=== PATIENT | male | born 1980 | race Hispanic/Latino ===

== ENCOUNTER 2023-02-26 13:40 | Observation (INO) | payer SELFPAY ==
[2023-02-26] VITALS (22 sets, daily range): BP systolic 118–154; BP diastolic 74–100
[~2023-02-26] VITALS: Ht 167.6 cm; Wt 77.1 kg
[~2023-02-26 13:40] MED LIST: ACYCLOVIR400 MG PO; LEVAQUIN750 MG PO; LIBRIUM25 M1 PO; THIAMINE HCL100 M1 PO
[2023-02-26 14:29] LABS: URINE BILIRUBIN - DIPSTICK Negative (NEGATIVE); URINE BLOOD DIPSTICK Trace-intact (NEGATIVE); URINE GLUCOSE - DIPSTICK Negative (NEGATIVE); URINE KETONE Negative (NEGATIVE); URINE LEUK ESTERASE Negative (NEGATIVE); URINE NITRITE - DIPSTICK Negative (Negative); URINE PH 5.5 (4.5-8.0); URINE PROTEIN - DIPSTICK Negative (NEG-TRACE); URINE UROBILINOGEN - DIPSTICK 0.2 E.U./dL (0.2)
[2023-02-26 14:31] LABS: BASO% 0.2 % (0-3); EOS% 0.1 % (0-8); IMMATURE GRANULOCYTES 0.6 % (0.0-5.0); LYMPH% 22.7 % (15-41); MEAN CELL VOLUME 81.9 fL CALC (80.0-100.0); MEAN CORPUSCULAR HGB 28.4 pG CALC (26.0-32.0); MEAN CORPUSCULAR HGB CONC 34.7 g/dL CAL (32.0-36.0); MONO% 5.3 % (2-13); NEUT# 5.89 thou/uL (1.82-7.42); NEUT% 71.1 % (42-76); RED BLOOD COUNT 5.46 mill/uL (4.70-6.10); RED CELL DISTRI WIDTH 12.3 % (11.5-15.5)
[2023-02-26 14:31] LABS: URINE COLOR Yellow
[2023-02-26 14:35] LABS: HEMATOCRIT 44.7 % (39.0-50.0); HEMOGLOBIN 15.5 g/dl (14.0-18.0)
[2023-02-26 15:21] LABS: ALBUMIN 4.5 g/dL (3.2-5.0); ALKALINE PHOSPHATASE 86 u/l (38-126); ANION GAP 16 (6-22 (CALC)); BUN 15 mg/dL (9-20); BUN/CREATININE RATIO 21 (12-20 (CALC)); CARBON DIOXIDE 29 mmol/l (22-30); CHLORIDE 100 mmol/l (95-108); CREATININE 0.7 mg/dL (0.7-1.3); GFR FOR AFR.AMER. > 60 ML/MIN (>=60 (CALC)); GFR OTHER RACES > 60 ML/MIN (>=60 (CALC)); LIPASE 377 u/l (23-300); POTASSIUM 3.5 mmol/l (3.5-5.1); SGOT/AST 287 u/l (17-59); SODIUM 141 mmol/l (137-146)
[2023-02-26 15:29] LABS: INTERNATIONAL NORMALIZED RATIO 1.3 RATIO (0.7-1.3)
[2023-02-26 15:33] LABS: BILIRUBIN, TOTAL 0.8 mg/dL (0.2-1.3); MAGNESIUM 2.3 mg/dL (1.6-2.3)
[2023-02-26 15:35] LABS: ETHYL ALCOHOL 456 mg/dl (0-30)
[2023-02-27] VITALS (17 sets, daily range): BP systolic 113–160; BP diastolic 71–104
[2023-02-27 07:21] LABS: BASO% 0.4 % (0-3); EOS% 0.5 % (0-8); IMMATURE GRANULOCYTES 0.4 % (0.0-5.0); LYMPH% 15.3 % (15-41); MEAN CELL VOLUME 82.2 fL CALC (80.0-100.0); MEAN CORPUSCULAR HGB 28.6 pG CALC (26.0-32.0); MEAN CORPUSCULAR HGB CONC 34.8 g/dL CAL (32.0-36.0); MONO% 8.7 % (2-13); NEUT# 5.57 thou/uL (1.82-7.42); NEUT% 74.7 % (42-76); RED BLOOD COUNT 4.61 mill/uL (4.70-6.10); RED CELL DISTRI WIDTH 12.3 % (11.5-15.5)
[2023-02-27 07:46] LABS: HEMATOCRIT 37.9 % (39.0-50.0); HEMOGLOBIN 13.2 g/dl (14.0-18.0)
[2023-02-27 07:54] LABS: ANION GAP 13 (6-22 (CALC)); BUN 11 mg/dL (9-20); BUN/CREATININE RATIO 17 (12-20 (CALC)); CARBON DIOXIDE 30 mmol/l (22-30); CHLORIDE 97 mmol/l (95-108); CREATININE 0.6 mg/dL (0.7-1.3); GFR FOR AFR.AMER. > 60 ML/MIN (>=60 (CALC)); GFR OTHER RACES > 60 ML/MIN (>=60 (CALC)); MAGNESIUM 1.8 mg/dL (1.6-2.3); POTASSIUM 3.5 mmol/l (3.5-5.1); SODIUM 136 mmol/l (137-146)
[2023-02-28] VITALS (19 sets, daily range): BP systolic 122–187; BP diastolic 69–120
[2023-02-28 09:19] LABS: BASO% 0.1 % (0-3); HEMATOCRIT 36.3 % (39.0-50.0); HEMOGLOBIN 12.7 g/dl (14.0-18.0); IMMATURE GRANULOCYTES 0.3 % (0.0-5.0); LYMPH% 13.2 % (15-41); MEAN CELL VOLUME 83.3 fL CALC (80.0-100.0); MEAN CORPUSCULAR HGB 29.1 pG CALC (26.0-32.0); MONO% 8.6 % (2-13); NEUT# 5.33 thou/uL (1.82-7.42); NEUT% 76.8 % (42-76); RED BLOOD COUNT 4.36 mill/uL (4.70-6.10); RED CELL DISTRI WIDTH 12.6 % (11.5-15.5)
[2023-02-28 09:51] LABS: ANION GAP 7 (6-22 (CALC)); BUN 8 mg/dL (9-20); BUN/CREATININE RATIO 12 (12-20 (CALC)); CARBON DIOXIDE 33 mmol/l (22-30); CHLORIDE 98 mmol/l (95-108); CPK 765 u/l (55-170); CREATININE 0.6 mg/dL (0.7-1.3); GFR FOR AFR.AMER. > 60 ML/MIN (>=60 (CALC)); GFR OTHER RACES > 60 ML/MIN (>=60 (CALC)); MAGNESIUM 2.2 mg/dL (1.6-2.3); POTASSIUM 3.2 mmol/l (3.5-5.1); SODIUM 135 mmol/l (137-146)
[2023-02-28] MEDS ORDERED: MULTI VITAMIN1 TAB PO (11:56)
[2023-02-28] MEDS ORDERED: B-1100 MG PO (11:57)
== END 2023-02-28 15:00 | disposition home or self-care (01) | DRG 897 ==
LOC: ED 13:40 → ED-I 15:51 → ED 17:45 → ICU 17:46
PROVIDERS: Family Medicine; ADMIT Student in an Organized Health Care Education/Training Program; ATTEND Student in an Organized Health Care Education/Training Program
DX: F10.139 Alcohol abuse with withdrawal, unspecified (principal); M62.82 Rhabdomyolysis; F10.129 Alcohol abuse with intoxication, unspecified; E83.51 Hypocalcemia; E83.42 Hypomagnesemia; Y90.8 Blood alcohol level of 240 mg/100 ml or more; Z20.822 Contact with and (suspected) exposure to COVID-19
CPT/HCPCS: J1650; J2060; J3475